=== PATIENT | male | born 1955 | race Caucasian/White ===

== ENCOUNTER 2020-08-02 07:28 | Outpatient (REF) | payer BC, SELFPAY ==
[2020-08-02 11:35] LABS: Estimated Average Glucose 200 mg/dL; Hemoglobin A1c % 8.6 %
[2020-08-02 11:45] LABS: Alanine Aminotransferase 46 U/L (0-40); Albumin Level 3.8 g/dL (3.5-5.0); Alkaline Phosphatase 92 U/L (39-117); Anion Gap 14 (12-20); Aspartate Amino Transferase 38 U/L (5-37); Bilirubin Total 0.4 mg/dL (0.0-1.0); Blood Urea Nitrogen 16 mg/dL (9-16); Calcium 9.3 mg/dL (8.4-10.2); Carbon Dioxide 29 mmol/L (22-29); Chloride 101 mmol/L (96-108); Cholesterol 153 mg/dL; Estimated Glomerular Filt Rate > 60; Glucose Fasting 99 mg/dL (60-99); HDL Cholesterol 57 mg/dL; LDL Cholesterol Calculated 81 mg/dl; Potassium 4.6 mmol/l (3.3-5.1); Sodium 139 mmol/L (135-145); Total Protein 7.2 g/dL (6.5-8.0); Triglycerides 79 mg/dL
[2020-08-02 11:55] LABS: Creatinine Urine 139.54 mg/dL; Microalbum/Creatinine Ratio Ur 37.9 ug/mg cr
== END 2020-08-02 07:29 | disposition home or self-care (01) ==
LOC: HO.MANLR 07:28
PROVIDERS: PCP Internal Medicine; Visit Provider Internal Medicine
DX: E10.9 Type 1 diabetes mellitus without complications (principal); I10 Essential (primary) hypertension; E78.00 Pure hypercholesterolemia, unspecified
CPT/HCPCS: 36415; 80053; 80061; 82043; 83036

== ENCOUNTER 2020-10-16 09:17 | Outpatient (REF) | payer BC, SELFPAY ==
[2020-10-16 12:30] LABS: Estimated Average Glucose 174 mg/dL; Hemoglobin A1c % 7.7 %
== END 2020-10-16 09:18 | disposition home or self-care (01) ==
LOC: HO.MANLDS 09:17
PROVIDERS: PCP Internal Medicine; Visit Provider Internal Medicine
DX: E10.9 Type 1 diabetes mellitus without complications (principal); I10 Essential (primary) hypertension; E78.00 Pure hypercholesterolemia, unspecified
CPT/HCPCS: 36415; 83036

== ENCOUNTER 2021-01-16 11:07 | Outpatient (REF) | payer BC, SELFPAY ==
[2021-01-16 13:13] LABS: Estimated Average Glucose 200 mg/dL; Hemoglobin A1c % 8.6 %
== END 2021-01-16 11:08 | disposition home or self-care (01) ==
LOC: HO.MANLDS 11:07
PROVIDERS: PCP Internal Medicine; Visit Provider Internal Medicine
DX: E10.9 Type 1 diabetes mellitus without complications (principal); E78.00 Pure hypercholesterolemia, unspecified; I10 Essential (primary) hypertension
CPT/HCPCS: 36415; 83036

== ENCOUNTER 2021-04-20 09:54 | Outpatient (REF) | payer BC, SELFPAY ==
[2021-04-20 11:15] LABS: Estimated Average Glucose 200 mg/dL; Hemoglobin A1c % 8.6 %
== END 2021-04-20 09:55 | disposition home or self-care (01) ==
LOC: HO.MANLDS 09:54
PROVIDERS: PCP Internal Medicine; Visit Provider Internal Medicine
DX: E10.9 Type 1 diabetes mellitus without complications (principal)
CPT/HCPCS: 36415; 83036

== ENCOUNTER 2021-06-01 11:35 | Outpatient (REF) | payer BC, SELFPAY ==
[2021-06-01 13:38] LABS: Estimated Average Glucose 177 mg/dL; Hemoglobin A1c % 7.8 %
== END 2021-06-01 11:36 | disposition home or self-care (01) ==
LOC: HO.MANLDS 11:35
PROVIDERS: PCP Internal Medicine; Visit Provider Internal Medicine
DX: E10.9 Type 1 diabetes mellitus without complications (principal)
CPT/HCPCS: 36415; 83036

== ENCOUNTER 2021-09-14 10:11 | Outpatient (REF) | payer BC, SELFPAY ==
[2021-09-14 11:28] LABS: Estimated Average Glucose 169 mg/dL; Hemoglobin A1c % 7.5 %
== END 2021-09-14 10:12 | disposition home or self-care (01) ==
LOC: HO.MANLDS 10:11
PROVIDERS: PCP Internal Medicine; Visit Provider Internal Medicine
DX: E10.9 Type 1 diabetes mellitus without complications (principal)
CPT/HCPCS: 36415; 83036

== ENCOUNTER 2021-12-17 09:36 | Outpatient (REF) | payer BC, SELFPAY ==
[2021-12-17 11:47] LABS: Estimated Average Glucose 183 mg/dL
== END 2021-12-17 09:37 | disposition home or self-care (01) ==
LOC: HO.MANLDS 09:36
PROVIDERS: Visit Provider Internal Medicine
DX: E10.9 Type 1 diabetes mellitus without complications (principal)
CPT/HCPCS: 36415; 83036

== ENCOUNTER 2022-02-19 07:32 | Outpatient (REF) | payer BC, SELFPAY ==
[2022-02-19 11:05] LABS: Alanine Aminotransferase 30 U/L (0-40); Albumin Level 3.9 g/dL (3.5-5.0); Alkaline Phosphatase 78 U/L (39-117); Anion Gap 15 (12-20); Aspartate Amino Transferase 25 U/L (5-37); Bilirubin Total 0.6 mg/dL (0.0-1.0); Blood Urea Nitrogen 12 mg/dL (9-16); Carbon Dioxide 25 mmol/L (22-29); Chloride 102 mmol/L (96-108); Cholesterol 119 mg/dL; Estimated Glomerular Filt Rate > 60; Glucose Random 136 mg/dL (60-115); HDL Cholesterol 55 mg/dL; LDL Cholesterol Calculated 42 mg/dl; Potassium 4.3 mmol/L (3.3-5.1); Sodium 138 mmol/L (135-145); Total Protein 7.1 g/dL (6.5-8.0); Triglycerides 111 mg/dL
[2022-02-19 11:11] LABS: Estimated Average Glucose 174 mg/dL; Hemoglobin A1c % 7.7 %
[2022-02-19 12:00] LABS: Creatinine Urine 90.13 mg/dL; Microalbum/Creatinine Ratio Ur 53.2 ug/mg cr
== END 2022-02-19 07:33 | disposition home or self-care (01) ==
LOC: HO.MANLDS 07:32
PROVIDERS: Visit Provider Internal Medicine
DX: E10.9 Type 1 diabetes mellitus without complications (principal)
CPT/HCPCS: 36415; 80053; 80061; 82043; 83036

== ENCOUNTER 2022-06-12 08:33 | Outpatient (REF) | payer BC, SELFPAY ==
[2022-06-12 11:30] LABS: Estimated Average Glucose 180 mg/dL; Hemoglobin A1c % 7.9 %
== END 2022-06-12 08:34 | disposition home or self-care (01) ==
LOC: HO.MANLDS 08:33
PROVIDERS: Visit Provider Internal Medicine
DX: E11.9 Type 2 diabetes mellitus without complications (principal)
CPT/HCPCS: 36415; 83036

== ENCOUNTER 2022-09-06 09:29 | Outpatient (REF) | payer BC, SELFPAY ==
[2022-09-06 11:41] LABS: Estimated Average Glucose 169 mg/dL; Hemoglobin A1c % 7.5 %
== END 2022-09-06 09:30 | disposition home or self-care (01) ==
LOC: HO.MANLDS 09:29
PROVIDERS: Visit Provider Internal Medicine
DX: E10.9 Type 1 diabetes mellitus without complications (principal)
CPT/HCPCS: 36415; 83036

== ENCOUNTER 2023-02-28 07:36 | Outpatient (REF) | payer BC, SELFPAY ==
[2023-02-28 13:55] LABS: Alanine Aminotransferase 26 U/L (0-40); Albumin Level 3.7 g/dL (3.5-5.0); Alkaline Phosphatase 62 U/L (39-117); Anion Gap 11 (12-20); Aspartate Amino Transferase 29 U/L (5-37); Bilirubin Total 0.4 mg/dL (0.0-1.0); Blood Urea Nitrogen 9 mg/dL (9-16); Calcium 9.5 mg/dL (8.4-10.2); Carbon Dioxide 27 mmol/L (22-29); Chloride 103 mmol/L (96-108); Cholesterol 116 mg/dL; Estimated Glomerular Filt Rate > 60; Glucose Random 112 mg/dL (60-115); HDL Cholesterol 62 mg/dL; LDL Cholesterol Calculated 40 mg/dl; Potassium 4.4 mmol/L (3.3-5.1); Sodium 137 mmol/L (135-145); Triglycerides 71 mg/dL
[2023-02-28 13:56] LABS: Estimated Average Glucose 169 mg/dL; Hemoglobin A1c % 7.5 %
[2023-02-28 14:06] LABS: Creatinine Urine 47.06 mg/dL; Microalbum/Creatinine Ratio Ur 23.3 ug/mg cr
== END 2023-02-28 07:37 | disposition home or self-care (01) ==
LOC: HO.MANLDS 07:36
PROVIDERS: Visit Provider Internal Medicine
DX: E11.9 Type 2 diabetes mellitus without complications (principal)
CPT/HCPCS: 36415; 80053; 80061; 82043; 83036

== ENCOUNTER 2023-06-02 09:50 | Outpatient (REF) | payer BC, SELFPAY ==
[2023-06-02 13:42] LABS: Estimated Average Glucose 174 mg/dL; Hemoglobin A1c % 7.7 % (<6.0)
== END 2023-06-02 09:51 | disposition home or self-care (01) ==
LOC: HO.MANLDS 09:50
PROVIDERS: Visit Provider Internal Medicine
DX: E10.9 Type 1 diabetes mellitus without complications (principal)
CPT/HCPCS: 36415; 83036

== ENCOUNTER 2023-09-15 14:09 | Outpatient (REF) | payer BC, SELFPAY ==
[2023-09-15 17:42] LABS: Estimated Average Glucose 180 mg/dL; Hemoglobin A1c % 7.9 % (<6.0)
[2023-09-15 17:43] LABS: Alanine Aminotransferase 64 U/L (0-40); Albumin Level 3.5 g/dL (3.5-5.0); Alkaline Phosphatase 145 U/L (39-117); Anion Gap 13 (12-20); Aspartate Amino Transferase 47 U/L (5-37); Bilirubin Total 0.5 mg/dL (0.0-1.0); Blood Urea Nitrogen 12 mg/dL (9-16); Carbon Dioxide 29 mmol/L (22-29); Chloride 95 mmol/L (96-108); Estimated Glomerular Filt Rate > 60; Glucose Random 223 mg/dL (60-115); Potassium 4.5 mmol/L (3.3-5.1); Sodium 132 mmol/L (135-145); Total Protein 7.2 g/dL (6.5-8.0)
== END 2023-09-15 14:10 | disposition home or self-care (01) ==
LOC: HO.MANLDS 14:09
PROVIDERS: Visit Provider Internal Medicine
DX: E10.9 Type 1 diabetes mellitus without complications (principal)
CPT/HCPCS: 36415; 80053; 83036

== ENCOUNTER 2024-01-12 13:30 | Outpatient (REF) | payer BC, SELFPAY | END 2024-01-12 13:31 | disposition home or self-care (01) | LOC: HO.MANLNP 13:30 | PROVIDERS: Visit Provider Physician Assistant | DX: A49.1 Streptococcal infection, unspecified site (principal) | CPT/HCPCS: 87070 ==

== ENCOUNTER 2024-02-13 09:13 | Outpatient (REF) | payer BC, SELFPAY ==
[2024-02-13 13:09] LABS: MANUAL DIFF FLAG NO
[2024-02-13 13:22] LABS: Basophils Absolute Auto 0.1 X10*3/uL (0.0-0.2); Eosinophils Absolute Auto 0.4 X10*3/uL (0.0-0.4); Hematocrit 32.8 % (42.0-52.0); Hemoglobin 11.1 g/dl (14.0-18.0); Imm Gran Abs Auto 0.04 X10*3/uL (0.00-0.03); Imm Gran Pct Auto 0.6 % (0.0-0.4); Lymphocytes Absolute Auto 0.4 X10*3/uL (1.2-4.9); Lymphocytes Percent Auto 6.2 % (20-40); Mean Corpuscular HGB Conc 33.8 g/dl (31.0-36.0); Mean Corpuscular Hemoglobin 30.4 pg (27.0-33.0); Mean Corpuscular Volume 89.9 fL (80.0-98.0); Mean Platelet Volume 9.9 fL (9.4-12.4); Monocytes Absolute Auto 1.2 X10*3/uL (0.1-1.2); Monocytes Percent Auto 17.2 % (2-11); Neutrophils Absolute Auto 4.9 x10*3/uL (2.0-8.3); Platelet Count 227 X10*3/uL (160-400); Red Blood Count 3.65 X10*6/uL (4.60-5.80); Red Cell Distribution Width 14.1 % (11.0-16.0); White Blood Count 7.1 X10*3/uL (4.8-10.8)
[2024-02-13 14:22] LABS: Alanine Aminotransferase 22 U/L (0-40); Albumin Level 3.3 g/dL (3.5-5.0); Alkaline Phosphatase 58 U/L (39-117); Anion Gap 12 (12-20); Aspartate Amino Transferase 24 U/L (5-37); Bilirubin Total 0.5 mg/dL (0.0-1.0); Blood Urea Nitrogen 31 mg/dL (9-16); Carbon Dioxide 23 mmol/L (22-29); Chloride 105 mmol/L (96-108); Estimated Glomerular Filt Rate 18; Glucose Random 112 mg/dL (60-115); Magnesium 2.1 mg/dL (1.6-2.6); Potassium 4.6 mmol/L (3.3-5.1); Sodium 135 mmol/L (135-145); Total Protein 7.3 g/dL (6.5-8.0); Uric Acid 5.1 mg/dL (3.4-7.0)
[2024-02-20 16:58] LABS: Renin 0.35 ng/mL/h (0.25-5.82)
== END 2024-02-13 09:14 | disposition home or self-care (01) ==
LOC: HO.MANLDS 09:13
PROVIDERS: Visit Provider Internal Medicine
DX: N17.9 Acute kidney failure, unspecified (principal)
CPT/HCPCS: 36415; 80053; 82088; 83735; 84244; 84550; 85025